=== PATIENT | female | born 1985 | race Caucasian/White ===

== ENCOUNTER → 2016-08-06 | Outpatient (CLI) | payer OTHER ==
[~2016-08-06] MED LIST: ATARAX PO; BIRTH CONTROL PO; CHOL2000 PO; DIPH25TA82 PO; FAMO20TA5 PO; FEXO1TAB42 PO; FISH1CAP15 PO; LACT1CAP66 PO; MNTL10T PO; PREN-93 PO
== END ==
LOC: RAD 15:11
PROVIDERS: ATTEND Nurse Practitioner Family
DX: R10.11 Right upper quadrant pain (principal)

== ENCOUNTER → 2016-08-07 | Outpatient (CLI) | payer OTHER ==
--- NOTE | 2016-08-07 08:42 | Diagnostic Imaging Report ---
PROCEDURE: US Abdomen, limited. TECHNIQUE: Multiple realtime grayscale images were obtained over the abdomen in various projections. INDICATION: Right upper quadrant pain. COMPARISON: None available. FINDINGS: The liver is unremarkable without focal hepatic mass. The gallbladder is unremarkable without evidence of gallstones, gallbladder wall thickening, or pericholecystic fluid. The common bile duct is within normal limits measuring up to 2 mm. Visualized portions of the pancreas are unremarkable. The right kidney is unremarkable without evidence of hydronephrosis or solid renal mass. No significant free fluid. Negative sonographic Jean sign. IMPRESSION: Unremarkable examination without acute abnormality identified. Dictated by: Dictated on workstation # [id number]
== END ==
LOC: RAD 08:02
PROVIDERS: ATTEND Physician Assistant
DX: R10.11 Right upper quadrant pain (principal)
CPT/HCPCS: 76705